=== PATIENT | female | born 1940 | race Caucasian/White ===

== ENCOUNTER → 2017-03-08 | Outpatient (CLI) | payer OTHER ==
[~2017-03-08] VITALS: Ht 165.1 cm; Wt 83.3 kg
[~2017-03-08] MED LIST: AMITRIPTYLINE H10 M3 PO; AMITRIPTYLINE H25 M2 PO; ASPIRIN EC81 M1 PO; BENICAR20 MG PO; CALCIUM 500 +1 EAC5 PO; CELEBREX 200 M200 M1 PO; CO Q-10200 MG PO; FISH OIL 1,0001 EAC5 PO; HYDROCODON-ACE1 EAC8 PO; HYDROCODONE-AP1 EA11 PO; HYDROCODONE-AP1 EAC6 PO; HYDROXYZINE HCL25 M1 PO; JANUMET 50-5001 EACH PO; LEXAPRO20 MG PO; LUNESTA2 MG PO; LYRICA 50 MG50 MG PO; MULTIVITAMINS PO; NEURONTIN 300300 M1 PO; NEXIUM40 MG PO; PRIMIDONE50 MG PO; PRISTIQ50 M1 PO; SINGULAIR 10 MG10 M1 PO; SYNTHROID125 MCG PO; ULTRAM 50MG TAB50 MG PO; VITAMIN D1000 UNI1 PO; VITAMINC500 PO; ZETIA10 MG PO; ZOCOR20 MG PO
--- NOTE | ~2017-03-08 | HPC ---
[facility] [place] [address] PAIN MANAGEMENT CONSULTATION Name: BK SHAW Room #: REG [facility] PrernaCalebEne.#: [id number] Admission: 03/08/17 Attend Phys: Sandra Bravo MD Discharge: Date of : 41 Report #: [id number] THIS REPORT FOR: //name// CC: Sandra Amaya MD DATE OF SERVICE: 03/08/2017 FOLLOWUP COMPLAINT: Here for medication renewal. FOLLOWUP HISTORY: The patient is a 76-year-old female who has been seen in the pain clinic because of chronic foot pain. She finds that her current regimen of Lyrica and amitriptyline are helpful. She rates it as a 5/10. She notes that she has had pain problematic for greater than 9 years. She has had no complication from the use of this medication and would like to continue its use. She finds that she is able to engage in activities of daily living, which would be much more difficult without its use. PHYSICAL EXAMINATION: Blood pressure is 137/67, pulse 75, respiratory rate 20, room air saturation is 97%. Height 5 feet 5 inches, weight 165 pounds, BMI is 30. The patient has not fallen since we saw her last. IMPRESSION: 1. Chronic right foot pain problematic for 10 years, has improved with use of Lyrica and amitriptyline. 2. Hyperlipidemia. 3. Diabetes. 4. Hypothyroidism. RECOMMENDATION: We will continue with her current medical regimen. A script for amitriptyline 25 mg 2 tablets at bedtime has been written. The patient will continue with tramadol 1 p.o. b.i.d. as needed 50 mg. She will call us if she has any problems with her medications. We would like to thank you for letting us participate in her care. We hope she continues to improve. By: [id number] Sandra Bravo MD /nt
[2017-03-08 09:56] VITALS: BP 137/67
== END | disposition home or self-care (01) ==
LOC: PAIN 06:41
DX: M25.571 Pain in right ankle and joints of right foot (principal); G89.29 Other chronic pain; E78.5 Hyperlipidemia, unspecified; E11.9 Type 2 diabetes mellitus without complications; E03.9 Hypothyroidism, unspecified

== ENCOUNTER → 2017-11-10 | Outpatient (CLI) | payer OTHER ==
[~2017-11-10] VITALS: Ht 165.1 cm; Wt 80.8 kg
[~2017-11-10] MED LIST changes: +AMITRIPTYLINE H50 M2 PO; +AMITRIPTYLINE H50 M3 PO; +AMITRIPTYLINE H50 M4 PO; +VICTOZA0.6 MG/0.1 SUBQ
--- NOTE | ~2017-11-10 | HPC ---
[facility] [address] PAIN MANAGEMENT CONSULTATION Name: BK SHAW [id number] Admission: 11/10/17 Attend Phys: Sandra Bravo MD Discharge: Date of : 41 Report #: [id number] THIS REPORT FOR: //name// CC: Sandra Amaya MD DATE OF SERVICE: 11/10/2017 FOLLOWUP REASON: Here for medications that are working pretty well. FOLLOWUP HISTORY: The patient is a 77-year-old female who has been followed in the pain clinic because of chronic pain involving her foot. She has had some problems with foot pain over greater than 10 years. At this juncture, her current medication regimen of Lyrica and amitriptyline are helpful. She rates her pain as a 4/5 today. She is not completely pain free, but feels she is able to engage in significant number of activity she was unable to prior to their use. She has had no problems with her medications. Feels that the medications are reasonably effective and provide her with some substantial improvement in her pain such that she is able to go about her life without complications. ALLERGIES: LIPITOR, CYMBALTA, LATEX, AND BAND-AIDS. REVIEW OF CURRENT MEDICATIONS: Amitriptyline 50 mg daily, tramadol 50 mg t.i.d., Lyrica 50 mg b.i.d., Zetia 10 mg daily, Zocor 20 mg at bedtime, calcium and vitamin D3 b.i.d., multivitamin tablet, fish oil 1000 mg sitagliptin/metformin 50 mg/500 daily, primidone 50 mg b.i.d., Celebrex 200 mg daily, Benicar 20 mg, Nexium 40 mg, and Synthroid 125 mcg. PAIN CLINIC ASSESSMENT: 1. The patient is not being treated for osteoarthritis or rheumatoid arthritis. 2. Height 5 feet 5 inches, weight 178 pounds, BMI 29. 3. Vital signs, blood pressure 134/59, pulse 83, respiratory rate 16, room air saturation 96%. 4. Pain intensity 12/26. 5. Fall risk. The patient has not fallen in the last 3 months and is not a fall risk. 6. The patient is not on blood thinners. 7. History of hypertension. The patient is being treated for hypertension. 8. Opioid use greater than 6 weeks. The patient is not receiving opioid medications on a regular basis, but is taking tramadol. 9. Risk assessment. 10. Functional assessment tool. Pain impact score is rated as 39/70 in regards to general activity, mood, walking ability, work, relationships with others, sleep, and enjoyment of life. [address] [address] PAIN MANAGEMENT CONSULTATION Name: BK SHAW Room #: REG CLI [facility]#: [id number] Admission: 11/10/17 Attend Phys: Sandra Bravo MD Discharge: Date of : 41 Report #: [id number] PHYSICAL EXAMINATION GENERAL: The patient is a well-developed, well-nourished white female. She appears her stated age. Orientation, the patient is alert and oriented x 3. Affect, it is appropriate. HEENT: Normocephalic, atraumatic. Extraocular eye muscles intact. No nasal complaints. Hearing within normal limits. Moist buccal membrane. NECK: Without adenopathy or JVD. LUNGS: Clear to auscultation. HEART: Regular rate. ABDOMEN: Nontender. MUSCULOSKELETAL: Alignment is normal without significant scoliosis, kyphosis or lordosis. Walk/gait appears normal. NEUROLOGIC: Upper extremity strength is judged to be 5/5 without neurological changes. Muscle bulk within normal limits. Lower extremity without radicular symptoms. Does have muscle symmetry in the lower extremities. The patient has pain involving the bottom of her right foot with a description of feels like wires are messed up with electricity. IMPRESSION: 1. Chronic right foot pain, which is improved with current use of amitriptyline and Lyrica. 2. Hyperlipidemia. 3. Diabetes. 4. Hypothyroidism. 5. Hypertension. RECOMMENDATIONS: We discussed treatment options with the patient. Again, she feels that her medications are working reasonably well, Lyrica, amitriptyline and tramadol are working reasonably effectively. At this juncture, we will continue with her medications. She will call us, if she has any problems with her medications. We would like to thank you for letting us participate in her care. We hope she continues to improve. <ELECTRONICALLY SIGNED> By: Sandra Bravo MD 12/15/17 0811 [id number] Sandra Bravo MD /nt
[2017-11-10 13:15] VITALS: BP 134/59
== END ==
LOC: PAIN 11:05
DX: G89.29 Other chronic pain (principal); M79.671 Pain in right foot; E78.5 Hyperlipidemia, unspecified; E11.9 Type 2 diabetes mellitus without complications; E03.9 Hypothyroidism, unspecified; I10 Essential (primary) hypertension; Z91.040 Latex allergy status; Z88.8 Allergy status to other drugs, medicaments and biological substances

== ENCOUNTER → 2018-08-22 | Outpatient (CLI) | payer OTHER ==
[~2018-08-22] VITALS: Ht 165.1 cm; Wt 81.6 kg
--- NOTE | ~2018-08-22 | HPC ---
[facility] [place] [address] PAIN MANAGEMENT CONSULTATION Name: BK SHAW Room #: REG [facility] Alonso#: [id number] Admission: 08/22/18 Attend Phys: Zarina Henson Discharge: Date of : 41 Report #: [id number] THIS REPORT FOR: //name// CC: Zarina Henson Uday Truong DATE OF SERVICE: 08/22/2018 CHIEF COMPLAINT: Chronic pain in her right foot. HISTORY OF PRESENT ILLNESS: This is a very pleasant 77-year-old that is here for refill of her medications for her chronic right foot pain. She tells me that her pain score is 4/10, which she says is a good number when she takes her medicines. She tells me that as long as she takes her Lyrica in the morning and her amitriptyline at night and occasionally she will take her tramadol if her pain is very bad that she is able to function throughout the day. She feels like she has an electric pain in her right foot. She tells me that it is worse with standing and walking that with his current regimen of medications, she is able to tolerate it and go about her activities of daily living and be functioning and other things that she needs to get done throughout the day. She denies any constipation or somnolence. She does tell me that she has a dry mouth from the amitriptyline, but will deal with that side effect by chewing gum and drinking plenty of liquids so that her pain is controlled. She would like a refill of her medications today. ALLERGIES: ATORVASTATIN, CYMBALTA, LATEX. CURRENT LIST OF MEDICATIONS: Amitriptyline 50 mg at bedtime, tramadol 1-2 tablets as needed a day, Lyrica 50 mg daily, Zetia 10 mg daily, Zocor 20 mg daily, multivitamin, fish oil, Janumet twice a day, primidone 50 mg daily, Celebrex 200 mg daily, Benicar 20 mg daily, Nexium 40 mg daily and Synthroid 125 mcg daily. PQRS: 1. The patient is not being treated for osteoarthritis or rheumatoid arthritis. 2. Height is 5 feet 5 inches, weight is 180, BMI is 30. 3. Vital signs: Blood pressure 157/73, 85 pulse, 16 respirations, 97% oxygen. 4. Pain intensity is 4/10. 5. Fall risk. She denies dizziness, does not need help walking or standing, has not fallen in the last 3 months. 6. Denies blood thinners, does have a history of taking antihypertensives. 7. Opioid therapy is greater than 6 weeks. Therefore, she will sign an opioid contract on the next visit. There is not one on the chart currently. Risk assessment tool is low and her functional assessment is 27/70. 8. Recreational drug use, she denies. Does not smoke and does not drink alcohol. [address] [address] PAIN MANAGEMENT CONSULTATION Name: COLINBK BERRIOS Leonel Room #: REG Quique Gupta#: [id number] Admission: 08/22/18 Attend Phys: Zarina Henson Discharge: Date of : 41 Report #: [id number] The patient is filling her meds appropriately and safeguarding her medications. PHYSICAL EXAMINATION: GENERAL: This is a well-developed, well-nourished white female that appears her stated age. She is alert and oriented x 3. Her speech is appropriate, fluent and her affect is appropriate. HEENT: Normocephalic, atraumatic. Extraocular eye muscles are intact. Mucous membranes are moist. Hearing is within normal limits. NECK: Without adenopathy or JVD. MUSCULOSKELETAL: Without scoliosis, kyphosis or lordosis. Gait is normal. EXTREMITIES: Her upper extremity strength judged to be 5/5 bilaterally in all muscle groups. Lower extremity strength to be judged 5/5 in all muscle groups. Complains of burning, tingling, electrical wires in her right foot, especially occasionally in her left. ASSESSMENT: 1. Chronic right foot pain, improved with medications. 2. Hyperlipidemia. 3. Diabetes. 4. Hypothyroidism. 5. Hypertension. 6. Isolating writing tremor. We reviewed the fact that opiate medications are being used to provide analgesia adequate to support activities of daily living, not attempting to achieve a specific pain score on the 0-10 Visual Analog Scale. The current opiate medications are providing sufficient analgesia to allow the patient to participate in activities of daily living. The patient is not exhibiting any aberrant behavior suggestive of drug diversion. The patient is not having any adverse reactions to medications. The patient is not suffering from daytime somnolence or mental acuity changes. The patient is managing opiate-induced constipation with appropriate mimo-ckm-iwfshyt agents and dietary considerations. The patient was counseled on concern for caution with operating a motor vehicle while using opiate medications. A physical exam was performed and the patient's functional status was evaluated. All patients with back pain were advised against the bed rest greater than 4 days and were advised to return to normal activities. Pain score assessment was noted and the treatment plan was reviewed with the patient. All current medications, both prescribed and OTC were reviewed and reconciled on the electronic medical record. Tobacco screening was accomplished and smoking cessation was advised when indicated. BMI was noted and diet/exercise modification was recommended for all patients following outside normal parameters. [address] [place] [address] PAIN MANAGEMENT CONSULTATION Name: BK SHAW Room #: REG [facility]#: [id number] Admission: 08/22/18 Attend Phys: Zarina RAGHAV Medranofrancia Discharge: Date of : 41 Report #: [id number] I reviewed with the patient today their responsibilities to safeguard prescription medications, reviewed their responsibility to utilize medications only as prescribed by the physician. They are to seek and receive pain medications only from 1 physician group ( [facility]). They are to use 1 pharmacy and keep the clinic informed if they change pharmacies. Their responsibilities include making followup visits in a timely fashion and to avoid abrupt discontinuation of medication usage. Their responsibilities further include bringing their medications (bottles from the pharmacy with residual pills) to the visit for possible confirmation of pill counts and the patient understands it is their responsibility to submit to random drug screens to ensure both that the medications prescribed are present, and that no other controlled substances are present. All prescriptions provided today were generated electronically. PLAN: We discussed treatment options with this patient today. She tells me that she is doing fairly well with her current medications and would like to continue them. Amitriptyline 50 mg 1 p.o. at bedtime, #30, to be filled locally. Amitriptyline 50 mg #90 with one additional refill to be mailed off. Next script Lyrica 50 mg b.i.d. #180, with one additional refill to be filled as a mail off. Final script tramadol 50 mg #60 with 2 additional refills. The patient will follow up in 6 months' time. For her medications, unless she needs her tramadol earlier, she will be seen at 3-month interval. Care was given today in collaboration with Dr. Yassine Bravo. <ELECTRONICALLY SIGNED> By: Zarina Henson 08/22/18 1529 [id number] Zarina Henson /nt
[2018-08-22 09:48] VITALS: BP 157/71
== END ==
LOC: PAIN 09:36
DX: M79.671 Pain in right foot (principal); E78.5 Hyperlipidemia, unspecified; E11.9 Type 2 diabetes mellitus without complications; E03.9 Hypothyroidism, unspecified; I10 Essential (primary) hypertension; G25.2 Other specified forms of tremor

== ENCOUNTER → 2019-10-02 | Outpatient (CLI) | payer OTHER ==
[~2019-10-02] VITALS: Ht 165.1 cm; Wt 76.4 kg
[~2019-10-02] MED LIST changes: +MICARDIS40 MG PO
[2019-10-02 14:54] VITALS: BP 157/83
--- NOTE | 2019-10-02 15:03 | NUR ---
Pain Clinic Assessment: 1. History of Osteoarthritis: Not Applicable History of Rheumatoid Arthritis: Not Applicable 2. Height: 5 ft. 5 in. 165.1 cm. Weight: 168.4 lb. oz. 76.386 kg. Patient's BMI: 28.0 3. Vital Signs: BP: 157/83 Pulse: 73 Resp: 16 Temp: 02 Sat: 100 ECG Mon: 4. Pain Intensity: 3 5. Fall Risk: Dizziness: N Needs help standing or walking: N Fallen in the last 3 months: N Fall risk comments: 6. Patient on Blood Thinner: None 7. History of Hypertension: Y 8. Opioid Therapy greater than 6 weeks: N Opiate Contract Signed: 9. Risk Assessment Tool Provided: 0-LOW RISK 10. Functional Assessment Tool: 11. Recreational Drug Use: Never Drug Type: Tobacco Use: Never Smoker Tobacco Type: Amount or Packs/day: How Many Years: Alcohol Use: No Frequency: Quant:
--- NOTE | 2019-10-03 12:41 | HPC ---
[facility] [address] [place] [address] PAIN MANAGEMENT CONSULTATION Name: BK SHAW Room #: REG [facility]..#: [id number] Admission: 10/02/19 Attend Phys: Zarina Henson Discharge: Date of : 41 Report #: [id number] THIS REPORT FOR: //name// CC: Zarina Truong MD DATE OF SERVICE: 10/02/2019 CHIEF COMPLAINT: Chronic right foot pain. HISTORY OF PRESENT ILLNESS: This is a very pleasant 79-year-old female who returns to the pain clinic today for refill of her medications for her chronic right foot pain. She is reporting a pain score of 3/10 today. She reports that the regimen that she is on for her current pain is working quite well. Last time, we saw the patient was in March. She has taken her medications very sparingly and is here today for renewal. She does report that her pain is worse with standing and walking. She feels also that she has gained some weight. She is not sure if this is associated with her the amitriptyline she takes or with the Lyrica. She has started to see a tower loader operator. They are wanting her to stop her amitriptyline and transition to Wellbutrin. ALLERGIES: ATORVASTATIN, DULOXETINE, LATEX and BAND-AIDS. CURRENT LIST OF MEDICATIONS: Micardis, amitriptyline 50 mg at bedtime, tramadol p.r.n., Lyrica 50 mg at bedtime, Zetia, Zocor, multivitamin, fish oil, Janumet, primidone, Celebrex, Nexium and Synthroid. PQRS: 1. She denies any osteoarthritis or rheumatoid arthritis. 2. Height is 5 feet 5 inches, weight is 168, BMI is 28. 3. Vital signs; 157/83, pulse is 73, respirations 16, oxygen sat is 100%. 4. Pain score is 3/10. 5. Denies dizziness, does not need help walking or standing, has not fallen in the last 3 months. The patient is not on any blood thinners, but does take medicine for hypertension. 6. Opioid therapy is greater than 6 weeks. There is no opiate signed contract on her chart. Risk assessment tool is low. Functional assessment is 70. 7. Recreational drug use, she denies. She is not a smoker and does not drink alcohol. According to the prescription monitoring system, the patient is filling appropriately for her medications. She is well below the CDC guidelines. PHYSICAL EXAMINATION: [address] [address] PAIN MANAGEMENT CONSULTATION Name: BK SHAW Room #: REG [facility] Alonso#: [id number] Admission: 10/02/19 Attend Phys: Zarina Henson Discharge: Date of : 41 Report #: [id number] GENERAL: This is alert and orientated, well-developed, well-nourished 79-year-old female who appears her stated age, placing her current pain score at 3/10. HEENT: Normocephalic, atraumatic. Extraocular eye muscles are intact. Mucous membranes are moist. NECK: Without adenopathy or JVD. MUSCULOSKELETAL: Without significant kyphosis, lordosis or scoliosis. She walks with a normal gait. She is tingly and burning sensation and electrical feelings in her right foot. Her lower extremity strength judged to be 5/5 in all major muscle groups. ASSESSMENT: 1. Chronic right foot pain, improved with current medication regime. 2. Hyperlipidemia. 3. Diabetes. 4. Complex medical management under terms of written opioid agreement. We reviewed the fact that opiate medications are being used to provide analgesia adequate to support activities of daily living, not attempting to achieve a specific pain score on the 0-10 Visual Analog Scale. The current opiate medications are providing sufficient analgesia to allow the patient to participate in activities of daily living. The patient is not exhibiting any aberrant behavior suggestive of drug diversion. The patient is not having any adverse reactions to medications. The patient is not suffering from daytime somnolence or mental acuity changes. The patient is managing opiate-induced constipation with appropriate vqee-sqp-wyhaocw agents and dietary considerations. The patient was counseled on concern for caution with operating a motor vehicle while using opiate medications. A physical exam was performed and the patient's functional status was evaluated. All patients with back pain were advised against the bed rest greater than 4 days and were advised to return to normal activities. Pain score assessment was noted and the treatment plan was reviewed with the patient. All current medications, both prescribed and OTC were reviewed and reconciled on the electronic medical record. Tobacco screening was accomplished and smoking cessation was advised when indicated. BMI was noted and diet/exercise modification was recommended for all patients following outside normal parameters. I reviewed with the patient today their responsibilities to safeguard prescription medications, reviewed their responsibility to utilize medications only as prescribed by the physician. They are to seek and receive pain medications only from 1 physician group ([facility]). They are to use 1 pharmacy and keep the clinic informed if they change pharmacies. Their responsibilities include making followup visits in a timely fashion and to avoid abrupt discontinuation of medication usage. Their responsibilities further [address] [address] PAIN MANAGEMENT CONSULTATION Name: BK SHAW Room #: REG CL[facility] Gupta#: [id number] Admission: 10/02/19 Attend Phys: Zarina AVILEZ Sixto Discharge: Date of : 41 Report #: [id number] include bringing their medications (bottles from the pharmacy with residual pills) to the visit for possible confirmation of pill counts and the patient understands it is their responsibility to submit to random drug screens to ensure both that the medications prescribed are present, and that no other controlled substances are present. All prescriptions provided today were generated electronically. PLAN: 1. We discussed treatment options with the patient today. The patient finds the Lyrica very beneficial in controlling her neuropathy. The patient takes 50 mg at bedtime. Occasionally, she will take an additional pill. We will refill a 3-month supply of Lyrica 50 mg #180 today with one additional refill. 2. The patient finds the amitriptyline beneficial, but does complain of some increased weight. She takes 50 mg at bedtime. Her tower loader operator would like to rotate her to Wellbutrin. I explained to the patient that we are prescribing this medication for its neuropathic benefits, not for antidepressant which the Wellbutrin is used for. If she would like to try to rotate medications, she may try that, but I believe her neuropathic symptoms may increase and currently, she tells me this medication has been very beneficial. The patient would like a prescription for this medicine today. She believes she will stay at her current dose, taking one tablet at bedtime. 3. We will refill her tramadol today. The patient takes this very sparingly. Scripts were written for 50 mg b.i.d., #60 with [address] Alex Bravo who did see her today and collaborated care. The patient will call for a refill appointment as needed. <ELECTRONICALLY SIGNED> By: Zarina Henson 10/03/19 1241 [id number] Zarina Henson /nt
== END ==
LOC: PAIN 07:04
DX: M79.671 Pain in right foot (principal); G89.29 Other chronic pain; E78.5 Hyperlipidemia, unspecified; E11.9 Type 2 diabetes mellitus without complications; Z79.891 Long term (current) use of opiate analgesic; Z79.899 Other long term (current) drug therapy

== ENCOUNTER → 2020-03-11 | Outpatient (CLI) | payer OTHER ==
[~2020-03-11] VITALS: Ht 165.1 cm; Wt 76.9 kg
[~2020-03-11] MED LIST changes: -NEXIUM40 MG PO; +PEPCID40 MG PO; +SYNTHROID100 MC1 PO; -SYNTHROID125 MCG PO
[2020-03-11 10:42] VITALS: BP 127/67
--- NOTE | 2020-03-11 10:53 | NUR ---
Pain Clinic Assessment: 1. History of Osteoarthritis: Not Applicable History of Rheumatoid Arthritis: Not Applicable 2. Height: 5 ft. 5 in. 165.1 cm. Weight: 169.6 lb. oz. 76.930 kg. Patient's BMI: 28.2 3. Vital Signs: BP: 127/67 Pulse: 86 Resp: 16 Temp: 02 Sat: 98 ECG Mon: 4. Pain Intensity: 5 5. Fall Risk: Dizziness: N Needs help standing or walking: N Fallen in the last 3 months: N Fall risk comments: 6. Patient on Blood Thinner: None 7. History of Hypertension: Y 8. Opioid Therapy greater than 6 weeks: N Opiate Contract Signed: 9. Risk Assessment Tool Provided: 0-LOW RISK 10. Functional Assessment Tool: 11. Recreational Drug Use: Never Drug Type: Tobacco Use: Never Smoker Tobacco Type: Amount or Packs/day: How Many Years: Alcohol Use: Yes Frequency: Monthly Quant: 1
--- NOTE | 2020-03-12 11:02 | HPC ---
[facility] [place] [address] PAIN MANAGEMENT CONSULTATION Name: BK SHAW Room #: REG [facility] M.R.#: [id number] Admission: 03/11/20 Attend Phys: Zarina Henson Discharge: Date of : 42 Report #: [id number] THIS REPORT FOR: cc: Uday Truong MD,Uday Henson,Zarina AVILEZ ~ CC: Claudia BRAVO MD DATE OF SERVICE: 03/11/2020 CHIEF COMPLAINT: Chronic right foot pain. HISTORY OF PRESENT ILLNESS: This is a very pleasant 79-year-old female who returns to the pain clinic today for refill of her medications that she uses to treat her ongoing chronic right foot pain. She feels that her regimen has been beneficial. She takes her tramadol very sparingly 1-2 tablets a week. She has not filled any of our refills of her September prescription. She finds the Lyrica and amitriptyline most beneficial in helping with her neuropathic pain. Today, she is rating a pain score of 5/10. She does continue to have some dry mouth issues as a result of her amitriptyline, but otherwise is very pleased with her regimen and would like refills. ALLERGIES: ATORVASTATIN, CYMBALTA, LATEX. CURRENT LIST OF MEDICATIONS: Amitriptyline 50 mg at bedtime, tramadol p.r.n., Lyrica 50 mg b.i.d., Micardis, Zetia, Zocor, multivitamin, fish oil, Janumet, primidone, Celebrex, Pepcid, and Synthroid. PQRS: 1. She denies osteoarthritis or rheumatoid arthritis. 2. Height is 5 feet 5 inches, weight is 169, BMI is 28. 3. Vital signs 127/67, pulse is 86, respirations 16, oxygen sat is 98%. 4. Pain score is 5/10. 5. Denies dizziness, does not need help walking or standing, has not fallen in the last 3 months. The patient is not on any blood thinners, but does take medicine for hypertension. Her opioid therapy is greater than 6 weeks. Risk assessment tool is low. Functional assessment is 2770. 6. Recreational drug use, she denies. She is not a smoker and does not drink alcohol. According to the prescription monitoring system, she has only filled her tramadol one time, which was in September. Has not filled any of her refills. Those are void now since it has been greater than 6 months. PHYSICAL EXAMINATION: GENERAL: This is a well-developed, well-nourished, well-hydrated 79[place] [address] PAIN MANAGEMENT CONSULTATION Name: COLINBK J Room #: REG [facility] Alirio.#: [id number] Admission: 03/11/20 Attend Phys: Zarina Henson Discharge: Date of : 42 Report #: [id number] female who appears her stated age, placing her current pain score 5/10 today. HEENT: Normocephalic, atraumatic. Extraocular eye muscles are intact. She is wearing a mask. MUSCULOSKELETAL: She walks with a normal gait. She has electrical tenderness feeling in her right foot. Her lower extremity strength judged to be 5/5 in all major muscle groups. She is without significant kyphosis, lordosis, or scoliosis. ASSESSMENT: 1. Chronic right foot pain improved with medication regimen. 2. Diabetes. 3. Peripheral neuropathy. 4. Complex medical management under terms of written opioid agreement. PLAN: 1. We discussed treatment options with the patient today. The patient feels that she is doing well with the tramadol 1 tablet very sparingly. The Lyrica and amitriptyline are most beneficial. We will refill these medications today. She does request a 3-month supply, which we have given her to mail off to her [facility] pharmacy of amitriptyline 50 mg, #90 with 2 refills as well as Lyrica 50 mg, #180 with 2 additional refills. 2. We will give her one prescription of 60 tablets of tramadol. This may last the patient at least 6 months since she takes them very rarely. These will be given in correlation with Dr. Alex Bravo who has written these medications for him. The patient will call as needed for an appointment. <ELECTRONICALLY SIGNED> By: Zarina Henson 03/12/20 1102 [id number] Zarina Henson /nt
== END ==
LOC: PAIN 06:41
PROVIDERS: ATTEND Clinical Nurse Specialist Adult Health
DX: M79.671 Pain in right foot (principal); E11.9 Type 2 diabetes mellitus without complications; G62.9 Polyneuropathy, unspecified; F11.20 Opioid dependence, uncomplicated; Z88.8 Allergy status to other drugs, medicaments and biological substances; Z79.899 Other long term (current) drug therapy

== ENCOUNTER → 2020-12-23 | Outpatient (CLI) | payer OTHER ==
[~2020-12-23] VITALS: Ht 165.1 cm; Wt 78.9 kg
[~2020-12-23] MED LIST changes: +PREGABALIN50 MG PO; +PRILOSEC OTC20 MG PO
[2020-12-23 09:34] VITALS: BP 141/76
--- NOTE | 2020-12-23 09:43 | NUR ---
Pain Clinic Assessment: 1. History of Osteoarthritis: Not Applicable History of Rheumatoid Arthritis: Not Applicable 2. Height: 5 ft. 5 in. 165.1 cm. Weight: 174.0 lb. oz. 78.926 kg. Patient's BMI: 29.0 3. Vital Signs: BP: 141/76 Pulse: 78 Resp: 16 Temp: 02 Sat: 97 ECG Mon: 4. Pain Intensity: 3 5. Fall Risk: Dizziness: N Needs help standing or walking: N Fallen in the last 3 months: N Fall risk comments: 6. Patient on Blood Thinner: None 7. History of Hypertension: Y 8. Opioid Therapy greater than 6 weeks: N Opiate Contract Signed: 9. Risk Assessment Tool Provided: 0-LOW RISK 10. Functional Assessment Tool: 11. Recreational Drug Use: Never Drug Type: Tobacco Use: Never Smoker Tobacco Type: Amount or Packs/day: How Many Years: Alcohol Use: Yes Frequency: Special Occasions Quant:
== END ==
LOC: PAIN 06:46
PROVIDERS: ATTEND Anesthesiology Pain Medicine
DX: M79.671 Pain in right foot (principal); G89.29 Other chronic pain; E78.5 Hyperlipidemia, unspecified; E11.9 Type 2 diabetes mellitus without complications; F11.20 Opioid dependence, uncomplicated; R25.1 Tremor, unspecified

== ENCOUNTER → 2021-08-25 | Outpatient (CLI) | payer OTHER ==
[~2021-08-25] VITALS: Ht 162.6 cm; Wt 75.3 kg
[~2021-08-25] MED LIST changes: +PAXIL10 MG PO
[2021-08-25 11:23] VITALS: BP 150/69
--- NOTE | 2021-08-25 11:26 | NUR ---
Pain Clinic Assessment: 1. History of Osteoarthritis: Not Applicable History of Rheumatoid Arthritis: Not Applicable 2. Height: 5 ft. 4 in. 162.6 cm. Weight: 166.0 lb. oz. 75.297 kg. Patient's BMI: 28.5 3. Vital Signs: BP: 150/69 Pulse: 76 Resp: 18 Temp: 02 Sat: 95 ECG Mon: 4. Pain Intensity: 3 5. Fall Risk: Dizziness: N Needs help standing or walking: N Fallen in the last 3 months: N Fall risk comments: 6. Patient on Blood Thinner: None 7. History of Hypertension: Y 8. Opioid Therapy greater than 6 weeks: N Opiate Contract Signed: 9. Risk Assessment Tool Provided: 0-LOW RISK 10. Functional Assessment Tool: 11. Recreational Drug Use: Never Drug Type: Tobacco Use: Never Smoker Tobacco Type: Amount or Packs/day: How Many Years: Alcohol Use: Yes Frequency: Quant:
== END ==
LOC: PAIN 08:25
PROVIDERS: ATTEND Clinical Nurse Specialist Adult Health
DX: G89.29 Other chronic pain (principal); M79.671 Pain in right foot; E11.9 Type 2 diabetes mellitus without complications; F41.8 Other specified anxiety disorders; Z88.8 Allergy status to other drugs, medicaments and biological substances; Z79.899 Other long term (current) drug therapy